=== PATIENT | male | born 1950 | race Caucasian/White ===

== ENCOUNTER 2018-03-17 09:00 | Outpatient (REF) | payer MEDICARE, SELFPAY ==
[2018-03-17 22:26] LABS: Anion Gap 6.9 mmol/L (3-11); BUN 19 mg/dL (7-18); CO2 30.1 mmol/L (21.0-32.0); CREATININE 1.12 mg/dL (0.70-1.30); Calcium 9.2 mg/dL (8.5-10.1); Chloride 104 mmol/L (98-107); Cholesterol 138 mg/dL (50-200); Glucose 142 mg/dL (70-100); HDL Cholesterol 67 mg/dL (40-60); LDL CHOLESTEROL 58 mg/dL (<100); Potassium 4.8 mmol/L (3.5-5.1); Sodium 141 mmol/L (136-145); TSH (W/Ref FT4) 2.79 uIU/mL (0.358-3.74); Triglyceride 66 mg/dL (30-150)
== END 2018-03-17 09:20 ==
LOC: NCHCN 09:00
PROVIDERS: PCP Family Medicine; Visit Provider Nurse Practitioner Family
DX: E03.9 Hypothyroidism, unspecified (principal); I10 Essential (primary) hypertension; R73.01 Impaired fasting glucose; M10.9 Gout, unspecified; E66.01 Morbid (severe) obesity due to excess calories
CPT/HCPCS: 80048; 80061; 83721; 84443

== ENCOUNTER 2019-03-09 10:26 | Outpatient (REF) | payer MEDICARE, SELFPAY ==
[2019-03-09 22:25] LABS: Anion Gap 7.8 mmol/L (3-11); BUN 19 mg/dL (7-18); CO2 30.2 mmol/L (21.0-32.0); Calcium 9.2 mg/dL (8.5-10.1); Calculated LDL 49 mg/dL; Chloride 105 mmol/L (98-107); Cholesterol 125 mg/dL (<200); Glucose 113 mg/dL (74-106); HDL Cholesterol 65 mg/dL (40-60); Potassium 4.8 mmol/L (3.5-5.1); Sodium 143 mmol/L (136-145); TSH 2.71 uIU/mL (0.36-3.74); Triglyceride 58 mg/dL (<150)
[2019-03-09 22:26] LABS: Hemoglobin A1C 5.9 % (4.5-6.2)
== END 2019-03-09 10:46 ==
LOC: NCHCN 10:26
PROVIDERS: PCP Family Medicine; Visit Provider Nurse Practitioner Family
DX: E03.9 Hypothyroidism, unspecified (principal); E11.9 Type 2 diabetes mellitus without complications; I10 Essential (primary) hypertension
CPT/HCPCS: 80048; 80061; 83036; 84443

== ENCOUNTER 2020-03-02 11:02 | Outpatient (REF) | payer MEDICARE, SELFPAY ==
[2020-03-02 20:42] LABS: Calculated LDL 63 mg/dL (<100); Cholesterol 144 mg/dL (<200); HDL Cholesterol 68 mg/dL (40-60); Triglyceride 67 mg/dL (<150)
[2020-03-02 21:19] LABS: FREE T4 1.28 ng/dL (0.76-1.46)
== END 2020-03-02 11:22 ==
LOC: NCHCN 11:02
PROVIDERS: PCP Family Medicine; Visit Provider Nurse Practitioner Family
DX: E11.9 Type 2 diabetes mellitus without complications (principal); I10 Essential (primary) hypertension; E03.9 Hypothyroidism, unspecified
CPT/HCPCS: 80061; 84439; 84443

== ENCOUNTER 2021-03-06 08:23 | Outpatient (REF) | payer MEDICARE, SELFPAY ==
[2021-03-06 17:06] LABS: Hemoglobin A1C 6.1 % (<5.7)
[2021-03-06 18:10] LABS: Anion Gap 7.8 mmol/L (3-11); BUN 22 mg/dL (7-18); CO2 31.2 mmol/L (21.0-32.0); Calcium 8.7 mg/dL (8.5-10.1); Calculated LDL 49 mg/dL (<100); Chloride 104 mmol/L (98-107); Cholesterol 127 mg/dL (<200); Glucose 128 mg/dL (74-106); HDL Cholesterol 61 mg/dL (40-60); Potassium 4.5 mmol/L (3.5-5.1); Sodium 143 mmol/L (136-145); TSH 7.75 uIU/mL (0.36-3.74); Triglyceride 88 mg/dL (<150)
[2021-03-06 18:35] LABS: FREE T4 1.23 ng/dL (0.76-1.46)
[2021-03-08 17:02] LABS: T3,Free 3.3 pg/mL (2.8-5.3)
== END 2021-03-06 08:24 | disposition home or self-care (01) ==
LOC: NCHCN 08:23
PROVIDERS: PCP Family Medicine; Visit Provider Nurse Practitioner Family
DX: E11.9 Type 2 diabetes mellitus without complications (principal); E03.9 Hypothyroidism, unspecified; Z00.00 Encounter for general adult medical examination without abnormal findings
CPT/HCPCS: 80048; 80061; 83036; 84439; 84443; 84481

== ENCOUNTER 2021-07-13 09:24 | Outpatient (REF) | payer MEDICARE, SELFPAY ==
[2021-07-13 14:36] LABS: FREE T4 1.44 ng/dL (0.76-1.46); TSH 4.72 uIU/mL (0.36-3.74)
[2021-07-13 14:39] LABS: Hemoglobin A1C 6.4 % (<5.7)
== END 2021-07-13 09:25 | disposition home or self-care (01) ==
LOC: NCHCN 09:24
PROVIDERS: PCP Family Medicine; Visit Provider Nurse Practitioner Family
DX: E11.9 Type 2 diabetes mellitus without complications (principal); E03.9 Hypothyroidism, unspecified
CPT/HCPCS: 83036; 84439; 84443

== ENCOUNTER 2022-01-09 09:00 | Outpatient (REF) | payer MEDICARE, SELFPAY ==
[2022-01-09 16:01] LABS: Hemoglobin A1C 6.2 % (<5.7)
[2022-01-09 16:04] LABS: HCT 43.8 % (40.0-50.0); HGB 14.9 g/dL (13.5-17.5); MCH 32.8 pg (27.0-33.0); MCV 97 fL (80-95); MPV 11.4 fL (8.0-11.0); Platelet Count 264 10^3/uL (130-400); RBC 4.54 10^6/uL (4.36-5.78); RDW 11.9 % (11.8-14.1); RDW-SD 42.4 fL; WBC 8.46 10^3/uL (4.4-10.8)
[2022-01-09 16:09] LABS: ALT 31 U/L (16-63); AST 21 U/L (15-37); Albumin 3.7 g/dL (3.4-5.0); Alkaline Phosphatase 68 U/L (46-116); Anion Gap 10.6 mmol/L (3-11); BUN 16 mg/dL (7-18); Bilirubin, Total 0.5 mg/dL (0.2-1.0); CO2 27.4 mmol/L (21.0-32.0); CREATININE 0.9 mg/dL (0.70-1.30); Calcium 8.8 mg/dL (8.5-10.1); Calculated LDL 44 mg/dL (<100); Chloride 104 mmol/L (98-107); Cholesterol 123 mg/dL (<200); Estimated GFR 90.74 (mL/min/1.73m2); Glucose 117 mg/dL (74-106); HDL Cholesterol 64 mg/dL (40-60); Potassium 4.2 mmol/L (3.5-5.1); Sodium 142 mmol/L (136-145); Triglyceride 79 mg/dL (<150)
[2022-01-10 09:35] LABS: FREE T4 1.34 ng/dL (0.76-1.46); TSH 6.85 uIU/mL (0.36-3.74)
== END 2022-01-09 09:01 | disposition home or self-care (01) ==
LOC: NCHCN 09:00
PROVIDERS: PCP Family Medicine; Visit Provider Nurse Practitioner Family
DX: E11.9 Type 2 diabetes mellitus without complications (principal); E03.9 Hypothyroidism, unspecified; I10 Essential (primary) hypertension
CPT/HCPCS: 80053; 80061; 85027; 83036; 84439; 84443

== ENCOUNTER 2022-01-11 10:57 | Outpatient (RCR) | payer MEDICARE, SELFPAY ==
--- NOTE | 2022-01-11 11:00 | HOLTER_ITS ---
APPROVED REPORT Conclusion This is a 48-hour Holter monitor reportedly ordered for syncope Rhythm throughout is sinus with an average heart rate of 61. Minimum was 45, maximum 104. First-deg ree AV block was present There were frequent ventricular ectopic beats couplets and ventricular triplets. There was one 5 be at run of nonsustained ventricular tachycardia There were rare ventricular ectopic beats There were several self-limited atrial runs longest of which was approximately 10 beats in duration. There was no atrial fibrillation. The episode labeled atrial fibrillation was sinus rhythm with atr ial premature beats There was no high-grade AV block There were no pauses greater than 3 seconds No patient symptoms were reported
== END 2022-01-29 23:59 | disposition home or self-care (01) ==
LOC: CARDOPNVT 10:57
PROVIDERS: PCP Family Medicine; Visit Provider Nurse Practitioner Family
DX: R55 Syncope and collapse (principal); I47.29 Other ventricular tachycardia; I49.1 Atrial premature depolarization
CPT/HCPCS: 93227; 93225; 93226

== ENCOUNTER 2022-02-26 10:58 | Outpatient (REF) | payer MEDICARE, SELFPAY ==
[2022-02-26 16:50] LABS: FREE T4 1.33 ng/dL (0.76-1.46); TSH 3.34 uIU/mL (0.36-3.74)
== END 2022-02-26 10:59 | disposition home or self-care (01) ==
LOC: NCHCN 10:58
PROVIDERS: PCP Family Medicine; Visit Provider Nurse Practitioner Family
DX: E03.9 Hypothyroidism, unspecified (principal)
CPT/HCPCS: 84439; 84443

== ENCOUNTER 2022-04-18 09:48 | Outpatient (REF) | payer MEDICARE, SELFPAY ==
[2022-04-18 15:49] LABS: Anion Gap 1.6 mmol/L (3-11); BUN 17 mg/dL (7-18); CO2 31.4 mmol/L (21.0-32.0); CREATININE 1.1 mg/dL (0.70-1.30); Calcium 9.4 mg/dL (8.5-10.1); Chloride 99 mmol/L (98-107); Estimated GFR 71.32 (mL/min/1.73m2); Glucose 141 mg/dL (74-106); Sodium 132 mmol/L (136-145)
== END 2022-04-18 09:49 | disposition home or self-care (01) ==
LOC: NCHCN 09:48
PROVIDERS: PCP Family Medicine; Visit Provider Nurse Practitioner Family
DX: I10 Essential (primary) hypertension (principal)
CPT/HCPCS: 80048

== ENCOUNTER 2022-05-17 14:51 | Outpatient (REF) | payer MEDICARE, SELFPAY ==
[2022-05-17 16:13] LABS: Anion Gap 9.3 mmol/L (3-11); BUN 17 mg/dL (7-18); CO2 28.7 mmol/L (21.0-32.0); Calcium 9.3 mg/dL (8.5-10.1); Chloride 102 mmol/L (98-107); Estimated GFR 79.97 (mL/min/1.73m2); Glucose 134 mg/dL (74-106); Potassium 4.1 mmol/L (3.5-5.1); Sodium 140 mmol/L (136-145)
== END 2022-05-17 14:52 | disposition home or self-care (01) ==
LOC: NCHCN 14:51
PROVIDERS: PCP Family Medicine; Visit Provider Nurse Practitioner Family
DX: I10 Essential (primary) hypertension (principal)
CPT/HCPCS: 80048

== ENCOUNTER 2023-02-12 18:21 | Outpatient (REF) | payer MEDICARE, SELFPAY ==
[2023-02-12 17:48] LABS: Anion Gap 5.7 mmol/L (3-11); BUN 13 mg/dL (7-18); CO2 30.3 mmol/L (21.0-32.0); CREATININE 1.2 mg/dL (0.70-1.30); Calcium 9.6 mg/dL (8.5-10.1); Chloride 101 mmol/L (98-107); Estimated GFR 63.85 (mL/min/1.73m2); FREE T4 0.53 ng/dL (0.76-1.46); Glucose 141 mg/dL (74-106); Potassium 4.7 mmol/L (3.5-5.1); Sodium 137 mmol/L (136-145); TSH 64.76 uIU/mL (0.36-3.74)
[2023-02-12 18:30] LABS: Hemoglobin A1C 6.5 % (<5.7)
== END 2023-02-12 18:22 | disposition home or self-care (01) ==
LOC: NCHCN 18:21
PROVIDERS: PCP Family Medicine; Visit Provider Nurse Practitioner Family
DX: I10 Essential (primary) hypertension (principal); E03.9 Hypothyroidism, unspecified; E11.9 Type 2 diabetes mellitus without complications
CPT/HCPCS: 80048; 83036; 84439; 84443

== ENCOUNTER 2023-10-22 09:59 | Outpatient (REF) | payer MEDICARE, SELFPAY ==
[2023-10-22 15:39] LABS: Abs Immature Grans 0.02 10^3/uL (0.0-0.06); Absolute Basophil Count 0.08 10^3/uL (0.0-0.2); Absolute Eosinophil Count 0.26 10^3/uL (0.0-0.7); Absolute Lymphocyte Count 2.01 10^3/uL (1.2-3.4); Absolute Monocyte Count 0.71 10^3/uL (0.1-0.8); Absolute Neutrophil Count 4.48 10^3/uL (1.2-6.7); Basophils % 1.1 %; Eosinophils % 3.4 %; HCT 42.5 % (40.0-50.0); HGB 14.5 g/dL (13.5-17.5); Immature Grans % 0.3 %; Lymphocytes % 26.6 %; MCH 33.1 pg (27.0-33.0); MCHC 34.1 % (32.0-36.0); MCV 97 fL (80-95); Monocytes % 9.4 %; Neutrophils % 59.2 %; Platelet Count 282 10^3/uL (130-400); RBC 4.38 10^6/uL (4.36-5.78); RDW 12.3 % (11.8-14.1); RDW-SD 44.4 fL; WBC 7.56 10^3/uL (4.4-10.8)
[2023-10-22 16:05] LABS: Hemoglobin A1C 6.4 % (<5.7)
[2023-10-22 16:11] LABS: ALT 42 U/L (16-63); AST 25 U/L (15-37); Albumin 3.7 g/dL (3.4-5.0); Alkaline Phosphatase 63 U/L (46-116); Anion Gap 6.2 mmol/L (3-11); BUN 14 mg/dL (7-18); Bilirubin, Total 0.57 mg/dL (0.2-1.0); CO2 32.8 mmol/L (21.0-32.0); CREATININE 1.2 mg/dL (0.70-1.30); Calculated LDL 51 mg/dL (<100); Chloride 104 mmol/L (98-107); Cholesterol 135 mg/dL (<200); Estimated GFR 63.46 (mL/min/1.73m2); Glucose 131 mg/dL (74-106); HDL Cholesterol 69 mg/dL (40-60); Magnesium 2.1 mg/dL (1.8-2.4); Potassium 4.6 mmol/L (3.5-5.1); Sodium 143 mmol/L (136-145); TSH 47.52 uIU/Ml (0.36-3.74); Total Protein 7.1 g/dL (6.4-8.2); Triglyceride 78 mg/dL (<150)
[2023-10-22 17:08] LABS: FREE T4 0.67 ng/dL (0.76-1.46)
== END 2023-10-22 10:00 | disposition home or self-care (01) ==
LOC: NCHCN 09:59
PROVIDERS: PCP Family Medicine; Visit Provider Physician Assistant Medical
DX: I10 Essential (primary) hypertension (principal); E03.9 Hypothyroidism, unspecified; E11.9 Type 2 diabetes mellitus without complications; R00.8 Other abnormalities of heart beat
CPT/HCPCS: 80053; 80061; 83036; 83735; 84439; 84443; 85025

== ENCOUNTER 2023-12-23 16:18 | Outpatient (REF) | payer MEDICARE, SELFPAY ==
[2023-12-23 20:34] LABS: TSH (W/Ref FT4) 20.66 uIU/mL (0.36-3.74)
[2023-12-23 20:55] LABS: FREE T4 0.64 ng/dL (0.76-1.46)
== END 2023-12-23 16:19 | disposition home or self-care (01) ==
LOC: NCHCN 16:18
PROVIDERS: PCP Family Medicine; Visit Provider Physician Assistant Medical
DX: E03.9 Hypothyroidism, unspecified (principal)
CPT/HCPCS: 84439; 84443

== ENCOUNTER 2025-02-22 13:59 | Outpatient (REF) | payer MEDICARE, SELFPAY ==
[2025-02-22 17:15] LABS: TSH (W/Ref FT4) 5.48 uIU/mL (0.55-4.78)
[2025-02-22 17:25] LABS: ALT 25 U/L (10-49); AST 24 U/L (<34); Albumin 4.2 g/dL (3.4-5.0); Alkaline Phosphatase 69 U/L (46-116); Anion Gap 8.2 mmol/L (3-11); BUN 17 mg/dL (9-23); Bilirubin, Total 0.30 mg/dL (0.2-1.2); CO2 28.8 mmol/L (20.0-31.0); Calcium 9.2 mg/dL (8.3-10.6); Chloride 105 mmol/L (98-107); Cholesterol 130 mg/dL (<200); Glucose 105 mg/dL (74-106); HDL Cholesterol 67 mg/dL (>40); Potassium 4.3 mmol/L (3.5-5.1); Sodium 142 mmol/L (136-145); Total Protein 6.9 g/dL (5.7-8.2)
[2025-02-22 17:28] LABS: Hemoglobin A1C 6.0 % (<5.7)
== END 2025-02-22 14:00 | disposition home or self-care (01) ==
LOC: NCHCN 13:59
PROVIDERS: PCP Family Medicine; Visit Provider Physician Assistant Medical
DX: E03.9 Hypothyroidism, unspecified (principal); E11.9 Type 2 diabetes mellitus without complications; I10 Essential (primary) hypertension
CPT/HCPCS: 80053; 80061; 83036; 84439; 84443